=== PATIENT | male | born 1970 | race Caucasian/White ===

== ENCOUNTER 2023-08-21 09:28 | Day surgery (SDC) | payer BC ==
[2023-08-20 13:53] LABS: Absolute Lymphocytes (CBC) 1.9 K/uL (0.7-4.9); Hematocrit 39.8 % (39.6-49.0); Lymphocytes % 36.1 % (15.3-44.8); MCV 89.7 fL (80-100); MPV 7.7 fL (7.6-11.3); Platelets 288 thou/uL (152-406); RBC Red Blood Cell Count 4.44 M/uL (4.33-5.43)
[2023-08-20 14:03] LABS: Potassium 3.3 mEq/L (3.5-5.1)
[2023-08-21] MEDS: Ringers Lactate 1,000 ML IV ONE (09:55)
[2023-08-21 10:23] VITALS: O2SAT 100
[2023-08-21] MEDS ORDERED: LIDOCAINE 1% MPF 5 ML VIAL ONE (12:36)
[2023-08-21] MEDS ORDERED: propofoL 200 MG/20 ML VIAL IV ONE (12:36)
[2023-08-21 15:10] VITALS: BP 117/78; TEMP 97.7
--- NOTE | 2023-08-24 14:44 | EKG ---
Test Date: 2023-08-20 Test Time: 14:18:40 Senior [employer] Developer: EVELYN MEASUREMENT RESULTS: Intervals: Rate: 70 DE: 140 QRSD: 104 QT: 386 QTc: 416 [place]de: P: 45 DE: 140 QRS: -2 T: 63 INTERPRETIVE STATEMENTS: Normal sinus rhythm Normal ECG No previous ECG available for comparison Electronically Signed On 08-24-23 14:32:00 [employer] by Phan Gallo
== END 2023-08-21 14:03 | disposition home or self-care (01) ==
LOC: OR 09:28
PROVIDERS: ATTEND Surgery
PROC: 0DBP8ZX Excision of Rectum, Via Natural or Artificial Opening Endoscopic, Diagnostic (ICD-10-PCS; principal; 2023-08-21 12:00)
DX: Z12.11 Encounter for screening for malignant neoplasm of colon (principal); D12.8 Benign neoplasm of rectum; K64.8 Other hemorrhoids; K57.30 Diverticulosis of large intestine without perforation or abscess without bleeding; E78.5 Hyperlipidemia, unspecified; Z79.899 Other long term (current) drug therapy; Z80.9 Family history of malignant neoplasm, unspecified; Z82.49 Family history of ischemic heart disease and other diseases of the circulatory system
CPT/HCPCS: 93005 ×2; 85025; 80048; 36415; 88305; 45380; J2704; J2001; J7120; 88304